=== PATIENT | female | born 2005 | race Caucasian/White ===

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

== ENCOUNTER 2025-05-07 10:02 | Outpatient (CLI) | payer BC, OTHER ==
[2025-05-07 10:33] LABS: MEAN PLATELET VOLUME 9.7 FL (7.4-10.4); RED CELL DISTRIBUTION WIDTH 13.3 % (11.5-14.5)
[2025-05-07 10:57] LABS: CREATININE 0.94 MG/DL (0.40-0.90); TOTAL CARBON DIOXIDE 30.4 MMOL/L (24-32); eGFR 77 ML/MIN
== END 2025-05-07 23:59 | disposition home or self-care (01) ==
LOC: LAB 10:02
PROVIDERS: ATTEND Family Medicine
DX: E78.5 Hyperlipidemia, unspecified (principal)
CPT/HCPCS: 36415; 80053; 83735; 84439; 84443; 85025

== ENCOUNTER 2025-05-11 08:54 | Outpatient (CLI) | payer BC, OTHER ==
--- NOTE | 2025-05-12 05:50 | CARDIOLOGY REPORT ---
APPROVED REPORT EXAM: Comprehensive 2D, Doppler, and color-flow Echocardiogram. Patient Location: OUT-PATIENT Blood Pressure: 124/79 mmHg Heart Rate: 70 bpm Rhythm: Sinus Indications Ventricular Premature Depolarization STUDIO MUSICIAN: Flores Cox MD No Previous ECHO 2D Dimensions LA Diam 2.7 cm IVSd 0.5 (0.7-1.1cm) LVDd 5.1 cm PWd 0.6 (0.7-1.1cm) IVSs 0.8 (0.8-1.2cm) LVDs 3.2 (2.5-4.0cm) PWs 1.2 (0.8-1.2cm) LVOT Diameter 1.80 (1.8-2.4cm) LVEF(%) 66.7 (>50%) IVC 16.42 mm FS (%) 37.1 % SV 82.1 ml M-Mode Dimensions Left Atrium(MM) 3.16 (2.5-4.0cm) Aortic Root 2.72 (2.2-3.7cm) Aortic Cusp Exc 1.92 (1.5-2.0cm) MV EPSS 0.4 (<0.5cm) Aortic Valve AoV Peak Que. 116.8 cm/s AoV VTI 24.6 cm AO Peak GR. 5.5 mmHg AO Mean GR. 3 mmHg LVOT VTI 23.90 cm LVOT Peak Que. 112.8 cm/s KATTY (VMAX) 2.46 cm2 KATTY (VTI) 2.48 cm2 AV DI 0.97 % Mitral Valve MV E Velocity 116.1 cm/s MV DECEL TIME 170 ms MV A Velocity 51.5 cm/s MV PHT 57 ms E/A Ratio 2.3 MVA (PHT) 3.86 cm2 TDI E/Medial E' 6.6 Pulmonary Valve PV Peak Velocity 108.5 cm/s PV Peak Grad. 5 mmHg Tricuspid Valve TR P. Velocity 224 cm/s RAP ESTIMATE 10 mmHg TR Peak Gr. 20 mmHg RVSP 30 mmHg LEFT VENTRICLE Normal LV size and wall thickness. Overall systolic function is normal. LVEF is 65-70%. RIGHT VENTRICLE Right ventricle appears mildly dilated with normal function. ATRIA The left atrium size is normal. AORTIC VALVE The aortic valve is normal in structure without stenosis. No insufficiency. MITRAL VALVE Mitral valve leaflets are mildly thickened without stenosis. Trivial regurgitation by color and spectral flow Doppler. TRICUSPID VALVE The tricuspid valve is normal in structure with trace regurgitation by color and spectral flow Doppler. PULMONIC VALVE The pulmonary valve is normal in structure with physiologic insufficiency by color and spectral flow Doppler. GREAT VESSELS The aortic root is normal in size. The ascending aorta is normal in size. The IVC is normal in size and collapses >50% with inspiration. PERICARDIUM Normal pericardium. No effusion. Other Information Study Quality: Adequate Conclusion Normal LV size and wall thickness. Overall systolic function is normal. LVEF is 65-70%. Right ventricle appears mildly dilated with normal function. The left atrium size is normal. The aortic valve is normal in structure without stenosis. No insufficiency. Mitral valve leaNormal LV size and wall thickness. Overall systolic function is normal.flets are mildly thickened without stenosis. Trivial regurgitation by color and spectral flow Doppler. The tricuspid valve is normal in structure with trace regurgitation by color and spectral flow Doppler. The pulmonary valve is normal in structure with physiologic insufficiency by color and spectral flow Doppler. Normal pericardium. No effusion.
== END 2025-05-11 23:59 | disposition home or self-care (01) ==
LOC: CARD DIAG 08:54
PROVIDERS: ATTEND Family Medicine
DX: I08.8 Other rheumatic multiple valve diseases (principal); I49.3 Ventricular premature depolarization
CPT/HCPCS: 93306